=== PATIENT | male | born 1970 | race Caucasian/White ===

== ENCOUNTER 2019-03-07 21:43 | Emergency (ER) | payer SELFPAY ==
[2019-03-07 21:47] VITALS: BP 138/87
--- NOTE | 2019-03-07 21:50 | ER Report ---
History and Physical Time Seen By MD: 21:50 Hx. of Stated Complaint: lower right tooth abcess HPI/ROS CHIEF COMPLAINT: Dental abscess HISTORY OF PRESENT ILLNESS: This is a 48-year-old male. He is working here temporarily, from [place]. Dental problems present for a while, now with swelling and pain in the lower right jaw concerning for dental abscess. No drainage in the mouth noted. Significant pain with eating and pressure on the teeth Allergies: Coded Allergies: No Known Drug Allergies (Unverified , 03/07/19) Home Meds Active Scripts Hydrocodone Bit/Acetaminophen (HYDROCODON-ACETAMINOPHEN 5-325) 1 Each Tablet, 1 EACH PO Q4H PRN for PAIN, #12 TAB 0 Refills Prov:MARTA GILLILAND MD 03/07/19 Amoxicillin (AMOXICILLIN) 500 Mg Capsule, 1 CAP PO Q8H, #30 CAPSULE 0 Refills Prov:MARTA GILLILAND MD 03/07/19 Reviewed Nurses Notes: Yes Constitutional Vital Sign - Last 24 Hours 03/07/19 21:47 Temp 98.1 Pulse 103 Resp 18 B/P (MAP) 138/87 Pulse Ox 93 O2 Delivery Room Air Physical Exam General Appearance: Alert, no distress. Eyes: Pupils equal and round no pallor or injection. ENT: Mucous membranes are moist. Oral mucosa is normal in appearance. Posterior oropharynx has no erythema or exudates. He does have some swelling in the gums but no definitive abscess. Significant large caries and the dentition with multiple teeth missing. Teeth present all have poor luck. Tenderness to percussion of the lower molars on the right. Musculoskeletal: Neck is supple non tender There is no adenopathy. Skin: Warm and dry, no rashes. DIFFERENTIAL DIAGNOSIS: After history and physical exam differential diagnosis was considered for pain and swelling from dental infection but no definitive abscess. Medical Decision Making ED Course/Re-evaluation ED Course Gave a shot of Rocephin, started amoxicillin and gave some Lortab for pain in addition to continued use of ibuprofen. He is trying to get into a dentist once the weekend is over. Decision to Disposition Date: March 07, 2019 Decision to Disposition Time: 22:00 Depart Departure Latest Vital Signs Vital Signs Date Time Temp Pulse Resp B/P (MAP) Pulse Ox O2 Delivery O2 Flow Rate FiO2 03/07/19 21:47 98.1 103 18 138/87 93 Room Air Impression: Primary Impression: Pain, dental Condition: Improved Disposition: HOME OR SELF-CARE New Scripts Hydrocodone Bit/Acetaminophen (HYDROCODON-ACETAMINOPHEN 5-325) 1 Each Tablet 1 EACH PO Q4H PRN for PAIN, #12 TAB 0 Refills Prov: MARTA GILLILAND MD 03/07/19 Amoxicillin (AMOXICILLIN) 500 Mg Capsule 1 CAP PO Q8H, #30 CAPSULE 0 Refills Prov: MARTA GILLILAND MD 03/07/19 Patient Instructions: Dental Abscess (ED), Toothache (ED) Additional Instructions: Ibuprofen 200mg over the counter tablets, take 4 tablets three times a day with food. Lortab 5/325, one every 4 hours as needed for pain. Apply ice 20 to help with swelling. Follow-up with the dentist this coming week. MARTA GILLILAND MD March 07, 2019 21:50
[2019-03-07] MEDS ORDERED: cefTRIAXone 1 GM VIAL IM ONE (22:00)
[2019-03-07] MEDS ORDERED: LIDOCAINE 1% MDV 200 MG/20 ML INJ ONE (22:00)
[2019-03-07] MEDS ORDERED: ACET/HYDROC 5/325MG TH ER ONLY 2 TAB/BOTTLE PO ONE (22:00)
[2019-03-07] MEDS ORDERED: AMOXICILLIN 500 MG CAP PO ONE (22:00)
[2019-03-07] MEDS ORDERED: LOR5/325 PO (22:02)
[2019-03-07] MEDS ORDERED: AMOX-362 PO (22:02)
== END 2019-03-07 22:21 | disposition home or self-care (01) ==
LOC: ER 21:46
DX: K08.89 Other specified disorders of teeth and supporting structures (principal)
CPT/HCPCS: 96372; 99283; J0696; J2001